=== PATIENT | female | born 1945 | race Caucasian/White ===

== ENCOUNTER → 2018-06-18 | Outpatient (CLI) | payer MEDICARE, OTHER ==
[2015-08-06 11:20] VITALS: BP 122/64
[~2018-06-18] MED LIST: SINCALIDE 1.43 MCG in IV NORMAL SALINE 50ML 30 ML IV ONE
--- NOTE | 2018-06-18 08:47 | RAD ---
CLINICAL HISTORY: EPIGASTRIC PAIN/BELCHING COMPARISON: None available. TECHNIQUE: Ultrasound of the upper abdomen was performed. FINDINGS: The liver measures 17 cm in length in the right mid clavicular line. The hepatic margin is smooth. Increased echogenicity of the liver consistent with hepatic steatosis. No focal liver lesion. Flow is seen within the portal vein. The gallbladder is normal in appearance without evidence for cholelithiasis. There is no wall thickening or pericholecystic fluid. There is no pain with direct transducer pressure over the gallbladder. The common bile duct is not well seen. The spleen is normal in size measuring 9.3 cm in length. The head and body of the pancreas are unremarkable. The tail is obscured by intestinal gas.. The right kidney measures 11.7 cm in bipolar length. The left kidney measures 11.6 cm in length. Normal renal cortical echogenicity bilaterally without evidence of focal lesion or hydronephrosis. Visualized portions of the abdominal aorta and inferior vena cava are unremarkable. There is no free fluid in the upper abdomen. IMPRESSION: 1. Hepatic steatosis 2. Otherwise normal sonographic survey of the upper abdomen. Electronically signed by: Omar Rodriguez MD (06/18/2018 8:42 AM) [facility]
--- NOTE | 2018-06-18 09:57 | RAD ---
Radionuclide hepatobiliary scan, 06/18/2018: HISTORY: Chronic epigastric pain Following IV injection of 5.0 mCi of technetium 99m Choletec there was prompt uptake of the radionuclide from the blood stream by the liver. Activity is present in the bile ducts and gallbladder at 10 minutes. Initial imaging over 1 hour showed increasing activity in the gallbladder without extension into the small bowel. This is not considered abnormal. Additional imaging was then performed following IV injection of 1.4 mcg of cholecystokinin. The gallbladder ejection fraction was calculated at 34 percent. 30-50 percent is considered to be the borderline low range. IMPRESSION: 1. No evidence of cystic duct or common bile duct obstruction. 2. The gallbladder ejection fraction was 34 percent. Electronically signed by: Baldo Huntley MD (06/18/2018 9:53 AM) [facility]
== END | disposition home or self-care (01) ==
LOC: US 06:49
PROVIDERS: ATTEND Internal Medicine Gastroenterology
DX: K76.0 Fatty (change of) liver, not elsewhere classified (principal)
CPT/HCPCS: 76700; 78227; A9537; J2805

== ENCOUNTER 2018-08-28 06:16 | Day surgery (SDC) | payer MEDICARE, OTHER ==
[~2018-08-28] VITALS: Ht 162.6 cm; Wt 71.7 kg
[~2018-08-28 06:16] MED LIST changes: +ACYC200C PO; +ATOR20TA58 PO; +BLAC540C4 PO; +CALC1CAP13 PO; +DOCU100C28 PO; +LEVO88TA4 PO; +MULT1CAP15 PO; +OXYB10TA PO; -SINCALIDE 1.43 MCG in IV NORMAL SALINE 50ML 30 ML IV ONE; +VITA1CAP PO
[2018-08-28] MEDS ORDERED: LIDOCAINE 1% PF 2 ML VIAL. ID PRN (07:00)
[2018-08-28] MEDS ORDERED: ONDANSETRON PF 4 MG/2 ML VIAL. IV PRN (07:00)
[2018-08-28] MEDS ORDERED: HYDROmorphone 2 MG/ML VIAL IV PRN (07:00)
[2018-08-28] MEDS ORDERED: fentaNYL PF VIAL 100 MCG/2 ML VIAL IV PRN ×2 (07:00)
[2018-08-28] MEDS ORDERED: MORPHINE SULFATE 2 MG/ML VIAL. IV PRN (07:00)
[2018-08-28] MEDS ORDERED: IV RINGERS,LACTATED 1000ML 1,000 ML IV SCH (07:00)
[2018-08-28] MEDS ORDERED: ROCURONIUM 50 MG/5 ML VIAL. ONE (07:03)
[2018-08-28] MEDS ORDERED: SEVOFLURANE 61 TO 120 MINUTES. IH ONE (07:03)
[2018-08-28] MEDS ORDERED: MIDAZOLAM HCL/PF 2 MG/2 ML VIAL. ONE (07:03)
[2018-08-28] MEDS ORDERED: GLYCOPYRROLATE 1 MG/5 ML VIAL. ONE (07:03)
[2018-08-28] MEDS ORDERED: NEOSTIGMINE 10 MG/10 ML VIAL. ONE (07:03)
[2018-08-28] MEDS ORDERED: fentaNYL PF VIAL 100 MCG/2 ML VIAL ONE ×2 (07:03→08:31)
[2018-08-28] MEDS ORDERED: ONDANSETRON PF 4 MG/2 ML VIAL. ONE (07:04)
[2018-08-28] MEDS ORDERED: KETOROLAC 30 MG/ML INJ FOR OR. INJ ONE (07:04)
[2018-08-28] MEDS ORDERED: IOHEXOL 300 MG/ML 100ML VIAL. ONE (07:04)
[2018-08-28] MEDS ORDERED: PROPOFOL 20 ML IV ONE (07:04)
[2018-08-28] MEDS ORDERED: BUPIVAC MPF-EPI 0.5%-1:200000 30 ML VIAL. ONE (07:04)
[2018-08-28] MEDS ORDERED: DEXAMETHASONE SOD PHOS 20 MG/5 ML VIAL. ONE (07:04)
[2018-08-28] MEDS ORDERED: LIDOCAINE 2% PF 5 ML VIAL. ONE (07:04)
[2018-08-28] MEDS ORDERED: SURGICEL HEMOSTAT 4X8 EACH. ONE (07:05)
[2018-08-28] MEDS ORDERED: PHENYLEPHRINE in 0.9% NACL PF 1 MG/10 ML SYRINGE. IV ONE (08:10)
--- NOTE | 2018-08-28 08:45 | RAD ---
Examination: CHOLANGIOGRAM INTRAOPERATIVE History: FL TIME =.3 MINUTES, 5 IMAGES SENT, CHOLANGIOGRAMS IN OR WITH C-ARM Comparison/Correlation: None Findings: A total of 5 images from intraoperative cholangiographic procedure were provided. Fluoroscopy was reportedly utilized for 0.3 minutes. Contrast is noted within the common bile duct. Cholecystectomy clips noted. No suspicious filling defect identified involving the common bile duct or the common hepatic duct. Cystic duct has a tortuous appearance but appears unremarkable. No extravasation of contrast at the site of the cholecystectomy clips. Impression: No stricture or suspicious filling defect involving the common bile duct. No extravasation of contrast. Electronically signed by: Milo Moralez MD (08/28/2018 8:42 AM) [id number]
--- NOTE | 2018-08-28 08:53 | PDOC4 ---
Operative Note Operative Note Operative Note: Preoperative Diagnosis: Biliary dyskinesia Postoperative Diagnosis: Same Procedure: Laparoscopic cholecystectomy with intraoperative cholangiogram Surgeons: Talha Anesthesia: Gen. Estimated Blood Loss: 5 mL Specimen: Gallbladder to pathology Drains: None Complications: None Indications: The patient is a 73-year-old female who was evaluated for abdominal pain. A PIPIDA scan showed a borderline low gallbladder ejection fraction suggesting possible biliary dyskinesia. Surgical treatment was offered by means of a laparoscopic cholecystectomy. The risks of surgery were discussed which include bleeding, infection, bile duct injury, bile leak, pain, the potential for additional surgeries or procedures. The patient understands and would like to proceed. Description: The patient was taken to the operating room and laid supine on the operating table. General anesthesia was performed. The abdomen was prepped with ChloraPrep and draped in a standard surgical fashion. A small infraumbilical incision was made with a scalpel. The Veress needle was then inserted and a pneumoperitoneum was then created. A 5 mm trocar was then inserted and the laparoscope was introduced. In the upper midabdomen a 5 mm trocar was inserted and in the right upper quadrant two 2.3 mm mini lap graspers were inserted. The gallbladder was retracted cephalad. The cystic duct was dissected free from surrounding tissues. One clip was placed on the duct near the gallbladder junction. An opening was made in the duct and a cholangiocatheter placed within and secured with a clip. Using contrast dye and fluoroscopy an intraoperative cholangiogram was performed that appeared unremarkable. The clip and catheter were then withdrawn. Three clips were placed on the cystic duct and it was divided. The cystic artery was then identified, dissected free, doubly clipped and divided as well. The gallbladder was then mobilized away from the liver with cautery. The umbilical 5 millimeter trocar was exchanged for an 11 millimeter trocar. The gallbladder was then placed in an endoscopic bag and extracted at the umbilical trocar site. The fascia there was closed with an 0 Vicryl suture. All blood and irrigation fluid was suctioned and hemostasis was good. The remaining ports were removed and the pneumoperitoneum was relieved. The skin incisions were injected with half percent Marcaine with epinephrine, and all were closed using 4-0 Monocryl suture. Steri-Strips and dressings were then applied. The patient tolerated the procedure well and was sent to the recovery room in stable condition. At the end of the case all counts were correct. GURU HERNANDEZ MD Aug 28, 2018 08:53
--- NOTE | 2018-08-28 08:55 | DISCH ---
DISCHARGE INSTRUCTIONS Condition on Discharge Condition on Discharge: Unstable Activity After Discharge Activity Instructions for Disc: Other, see below (no lifting over 20 lbs X 2 weeks) Diet after Discharge Diet after Discharge: Regular Wound Incision Care Wound/Incision Care: Other, see below (may remove bandaids and shower tomorrow) Follow-Up Follow up with: Dr Hernandez in 2 weeks in office, call for appt [phone] GURU HERNANDEZ MD Aug 28, 2018 08:55
[2018-08-28] MEDS ORDERED: HYDR-3164 PO (09:38)
[2018-08-28] MEDS ORDERED: HYDROcodone/APAP 5/325MG 1 TAB TABLET PO ONE (10:30)
[2018-08-28 10:42] VITALS: BP 115/69
--- NOTE | 2018-08-29 17:07 | PATHOLOGY ---
[facility] Accession Number: [id number] . 01 Material submitted: . GALLBLADDER . 01 Clinical history: . Cholelithiasis . 02 Diagnosis: Gallbladder, cholecystectomy: - Cholelithiasis. - Chronic cholecystitis. (M:farhana; 08/29/2018) MBR/08/29/2018 . 02 Comment: There is no evidence of malignancy. (MILAM:farhana; 08/29/2018) . 02 Electronically signed: . Ernie Troncoso MD, Pathologist NPI- [id number] . 01 Gross description: . The specimen is received in formalin, labeled "Maria Eugenia Sagastume, gallbladder, is an intact gallbladder measuring 8.2 x 2.7 x 2.2 cm with a wrinkled, jackson-purple serosa. The lumen is filled with yellow-green viscous bile admixed with minute black sand-like material approximately measuring 1.0 cm in greatest dimension. The mucosa is jackson-brown and the wall has an average thickness of 0.1 cm. No discrete masses are identified. Sheet Turner tissue is submitted in A1. ([facility]; 08/28/2018) [facility] . 02 Pathologist provided ICD-10: K80.10 . 02 CPT . 066788 Specimen Comment: A courtesy copy of this report has been sent to Specimen Comment: [phone], . Specimen Comment: Report sent to / DR HOOKER Performed at: 01 [facility] [id number] [facility] [address], [place] [id number] MD Dayday Cohn MD Phone: [phone] Performed at: [address] [facility] [place] [id number] MD Ernie Troncoso MD Phone: [phone]
== END 2018-08-28 10:42 | disposition home or self-care (01) ==
LOC: SURG 06:16
PROVIDERS: ATTEND Surgery
DX: K80.10 Calculus of gallbladder with chronic cholecystitis without obstruction (principal); E03.9 Hypothyroidism, unspecified; E78.00 Pure hypercholesterolemia, unspecified; Z88.2 Allergy status to sulfonamides; Z88.8 Allergy status to other drugs, medicaments and biological substances; Z79.899 Other long term (current) drug therapy; Z90.710 Acquired absence of both cervix and uterus; Z98.890 Other specified postprocedural states; Z80.0 Family history of malignant neoplasm of digestive organs; Z80.3 Family history of malignant neoplasm of breast; Z72.89 Other problems related to lifestyle
CPT/HCPCS: 47563; 74300; 88304; A7015; J0696; J1100; J1885; J2001; J2250; J2405; J2704; J2710; J3010; J3490; J7030; J7120; Q9967; J2370

== ENCOUNTER → 2019-05-27 | Outpatient (CLI) | payer MEDICARE, OTHER ==
[~2019-05-27] MED LIST changes: +HYDR-3164 PO; +IOHEXOL 240 MG/ML 50ML VIAL. PO ONE; +IOHEXOL 300 MG/ML 100ML VIAL. IV ONE; -OXYB10TA PO; +OXYB10TA2 PO
--- NOTE | 2019-05-27 14:11 | KCIC ---
CT abdomen pelvis Wo contrast dated 05/27/2019. No comparison available. Clinical data indication: Epigastric pain and weight loss. TECHNIQUE: Contiguous axial imaging of the abdomen and pelvis performed after the administration of 89 cc Omnipaque 300. One or more of the following individualized dose reduction techniques were utilized for this examination: 1. Automated exposure control 2. Adjustment of the mA and/or kV according to patient size 3. Use of iterative reconstruction technique. FINDINGS: Limited images of lung bases are clear. Heart size within normal limits. Large hiatal hernia. Liver, spleen, pancreas, adrenal glands and kidneys are unremarkable. No hydronephrosis. The gallbladder is surgically absent. There is a small well-circumscribed low-density focus within the medial spleen that measures 1.3 cm, nonspecific. Partially opacified GI tract normal in caliber and contour. No focal bowel wall thickening. No inflammatory stranding in the mesentery. The appendix is normal in caliber. No ascites or lymphadenopathy. Possible area of mild wall thickening involving the ascending colon versus peristaltic activity on axial images 32 through 40. No ascites or lymphadenopathy. Abdominal aorta normal in caliber. Images of pelvis show nondistended urinary bladder. The uterus is surgically absent. Scattered diverticula throughout the colon. No paracolonic inflammatory changes. No free fluid or pelvic lymphadenopathy. Bone windows show no acute findings. IMPRESSION: 1. No acute abnormality of abdomen or pelvis. Normal appendix. 2. Possible short segment wall thickening of the ascending colon versus normal peristaltic activity. Correlate with recent Colonoscopy results. 3. Status post cholecystectomy and hysterectomy. 4. Small low-density lesion in the medial spleen, nonspecific. 5. Large hiatal hernia. Electronically signed by: Pierre Yo MD (05/27/2019 2:09 PM) [facility]
== END | disposition home or self-care (01) ==
LOC: KCIC CT 09:16
PROVIDERS: ATTEND Internal Medicine Gastroenterology
DX: K44.9 Diaphragmatic hernia without obstruction or gangrene (principal); Z90.49 Acquired absence of other specified parts of digestive tract
CPT/HCPCS: 74177; 82565; Q9966; Q9967

== ENCOUNTER → 2019-07-04 | Day surgery (SDC) | payer MEDICARE, OTHER ==
[~2019-07-04] MED LIST changes: -IOHEXOL 240 MG/ML 50ML VIAL. PO ONE; -IOHEXOL 300 MG/ML 100ML VIAL. IV ONE; +IV RINGERS,LACTATED 1000ML 1,000 ML IV SCH; +LIDOCAINE 2% PF 5 ML VIAL. ONE; -OXYB10TA2 PO; +OXYB10TA26 PO; +PROPOFOL 40 ML IV ONE
[2019-07-04 14:30] VITALS: BP 147/65
--- NOTE | 2019-07-05 01:11 | CONS ---
DATE OF CONSULTATION: 07/04/2019 REFERRING PHYSICIAN: Tom Waite MD REASON FOR CONSULTATION: Abdominal pain, weight loss, abnormal CAT scan. HISTORY OF PRESENT ILLNESS: This 74-year-old female whose past medical history is significant for colonic polyps, diverticulosis, hyperlipidemia, hypothyroidism is seen with epigastric abdominal pain associated with belching, bloating and nausea. Prior cholecystectomy is noted. CT scan did reveal possible thickening of the ascending colon versus spontaneous contraction. Interval colonoscopy and upper endoscopy are recommended to further assess. PAST MEDICAL HISTORY: 1. Colonic diverticulosis, polyps. 2. Hyperlipidemia. 3. Hypothyroidism. ALLERGIES: SULFA and PROMETHAZINE. MEDICATIONS: Include: 1. Acyclovir. 2. Atorvastatin. 3. Calcium. 4. Docusate. 5. Levothyroxine. 6. Multivitamin. 7. Oxybutynin. 8. Vitamin D. FAMILY HISTORY: Significant for colon cancer with her father, cardiac disease with grandfather, cerebrovascular accident with her mother. PAST SURGICAL HISTORY: Status post hysterectomy and cholecystectomy. REVIEW OF SYSTEMS: Per records. PHYSICAL EXAMINATION: GENERAL: Reveals a well-nourished, well-developed female who is alert, cooperative, in no acute distress. VITAL SIGNS: Temperature 97, pulse 80, respirations 20. HEENT: Reveals normocephalic, atraumatic head. Pupils and extraocular muscles are not tested. Sclerae anicteric. NECK: Supple. LUNGS: Clear. CARDIOVASCULAR: Reveals S1, S2 without S3, S4 or appreciable murmur. ABDOMEN: Soft abdomen, normal bowel sounds, without appreciable hepatosplenomegaly, with diffuse tenderness. EXTREMITIES: Reveal no cyanosis, clubbing or edema. IMPRESSION: Abdominal pain, status post cholecystectomy, with weight loss, abnormal CAT scan. Upper endoscopy and colonoscopy were recommended to further assess. Risks and benefits of the procedures including risk of hemorrhage and perforation requiring operation were discussed. The patient is willing to proceed at this time. GURU CONDE MD DR: KELSEY/alcon JOB#: [id number] / [id number]
--- NOTE | 2019-07-08 12:06 | PATHOLOGY ---
[facility] Accession Number: [id number] . 01 Material submitted: . PART A: duodenum - DUODENAL POLYP PART B: hepatic flexure - HEPATIC FLEXURE POLYP . 01 Clinical history: . Weight loss, abdominal pain . 02 Diagnosis: A. Duodenal biopsy, duodenal polyp: - Well-differentiated neuroendocrine tumor, grade I. See comment. -Mild nonspecific duodenitis. . B. Colon biopsies, hepatic flexure polyp: - Tubular adenoma. (JPM/db/morena; 07/05/2019) LBQ 07/08/2019 1156 Local . 02 Comment: Sections of the duodenal polyp biopsy reveal several nests of uniform cells within the lamina propria which have eosinophilic granular cytoplasm and possess rounded to slightly ovoid regular appearing nuclei. A panel of immunoperoxidase stains is obtained on block A1 and yields the following results: . Synaptophysin: Tumor cells positive. Chromogranin: Tumor cells positive. CD56: Tumor cells positive. Ki-67: Tumor shows low proliferation index (less than 3%). . The morphologic and immunophenotypic findings are supportive of the diagnosis of well-differentiated neuroendocrine tumor, grade I. The tumor measures approximately 2 mm in greatest dimension on the glass slide. . Sections of the hepatic flexure biopsy reveal a tubular adenoma showing no high grade dysplasia or evidence of malignancy. . The case is also examined by Dr. Mariscal, who concurs with the diagnosis. (JPM:morena; 07/08/2019) . . Special stains performed: Immunoperoxidase stains for CD56, synaptophysin, chromograin, and Ki-67. . 02 Electronically signed: . Ernie Troncoso MD, Pathologist NPI- [id number] . 01 Gross description: . A. Received in formalin labeled "Tanika Maria Eugenia, duodenal polyp," is a single segment of jackson soft tissue measuring 0.5 cm in maximum dimension. The specimen is entirely submitted in cassette A1. . B. Received in formalin labeled "Tanika, Maria Eugenia, hepatic flexure polyp," is a single segment of jackson soft tissue measuring 0.3 cm in maximum dimension. The specimen is entirely submitted in cassette B1. ([facility]; 07/04/2019) TOB/TOB 07/04/20192022 Local . 02 Pathologist provided ICD-10: D3A.8, D12.3 . 02 CPT . 855583, 577413, S89557, F31785, 146771 Specimen Comment: A courtesy copy of this report has been sent to [phone], [phone]- Specimen Comment: [phone] Specimen Comment: Report sent to / DR HOOKER Performed at: 01 [facility] [address], [place] [id number] MD Dayday Cohn MD Phone: [phone] Performed at: 02 [facility] [address] [place], [place] [id number] MD Ernie Troncoso MD Phone: [phone]
== END ==
LOC: ENDOS 12:06
PROVIDERS: ATTEND Internal Medicine Gastroenterology
DX: R11.0 Nausea (principal); D12.0 Benign neoplasm of cecum; K31.7 Polyp of stomach and duodenum; K57.30 Diverticulosis of large intestine without perforation or abscess without bleeding; K44.9 Diaphragmatic hernia without obstruction or gangrene; K64.0 First degree hemorrhoids; E78.5 Hyperlipidemia, unspecified; E03.9 Hypothyroidism, unspecified; Z86.010 Personal history of colon polyps; Z90.49 Acquired absence of other specified parts of digestive tract; Z88.1 Allergy status to other antibiotic agents; Z88.8 Allergy status to other drugs, medicaments and biological substances; Z90.710 Acquired absence of both cervix and uterus
CPT/HCPCS: 43239; 45385; 88305; 88341; 88342; 88360; J2001; J2704; 43251